=== PATIENT | female | born 1995 | race Asian ===

== ENCOUNTER 2016-12-31 13:39 | Emergency (ER) | payer OTHER ==
[~2016-12-31] VITALS: Ht 163.8 cm; Wt 51.7 kg
[2016-12-31 13:47] VITALS: TEMP 36.9; Ht 163.8 cm; Wt 51.7 kg
[2016-12-31 15:27] LABS: URINE APPEARANCE CLEAR (CLEAR); URINE BILIRUBIN NEG (NEG); URINE COLOR YELLOW; URINE EPITHELIAL CELL AUTO >30 /lpf (0-5); URINE NITRITE NEG (NEG); URINE SPECIFIC GRAVITY 1.007 (1.000-1.030); UROBILINOGEN NEG (NEG)
[2016-12-31 15:29] LABS: MANUAL MICROSCOPIC REQUIRED? NO; REVIEW REQ? NO
[2016-12-31 15:44] LABS: BASO % 0.3 %; BASO ABS # 0.01 K/uL (0-0.2); COMPLETE YES; EOS % 0.3 %; HEMATOCRIT 30.7 % (37-47); LYMPH % 25.6 %; LYMPH ABS # 0.92 K/uL (1.2-3.4); MEAN CELL VOLUME 87.2 fL (80-100); MEAN CORPUSCULAR HEMOGLOBIN 28.4 pg (25-34); MEAN CORPUSCULAR HGB CONC 32.6 g/dl (32-36); MEAN PLATELET VOLUME 9.6 fL (7.4-10.4); MONO % 6.4 %; NEUT % 67.4 %; PLATELET COUNT 229 K/uL (130-400); RED BLOOD COUNT 3.52 M/uL (4.2-5.4)
[2016-12-31 16:08] LABS: ALT/SGPT 22 U/L (12-78); BLOOD UREA NITROGEN 14 mg/dl (7-18); BUN/CREATININE RATIO 24.5 (10-20); CALCIUM 8.7 mg/dl (8.5-10.1); CARBON DIOXIDE 28 mmol/L (21-32); CHLORIDE 106 mmol/L (98-107); CREATININE 0.56 mg/dl (0.60-1.20); GLUCOSE 79 mg/dl (70-99); POTASSIUM 3.4 mmol/L (3.5-5.1); SODIUM 140 mmol/L (136-145)
[2016-12-31 16:18] LABS: ALB/GLOB RATIO 1.2 (0.9-2); ALKALINE PHOSPHATASE 41 U/L (45-117); AST/SGOT 14 U/L (15-37)
--- NOTE | 2016-12-31 16:20 | DIAGNOSTIC IMAGING REPORT ---
PELVIC ULTRASOUND CLINICAL HISTORY: Irregular menses. COMPARISON STUDY: None. TECHNIQUE: Transabdominal and transvaginal sonography of the pelvis was performed. FINDINGS: The uterus measures 7.3 x 3.3 x 4.1 cm. Endometrium measures 4 mm in thickness. No uterine abnormalities are identified by sonography. The right ovary measures 2.2 x 1.4 x 2.7 cm and the left measures 2.9 x 1.6 x 2.3 cm. Color flow is identified within each ovary. A small amount of free pelvic fluid is likely physiologic. IMPRESSION: 1. Unremarkable sonographic appearance of the uterus and ovaries. 2. Small amount of fluid within the pelvis which is likely physiologic. Electronically signed by: Moises Weir M.D. 12/31/2016 4:19 PM Dictated Date/Time: 12/31/2016 4:18 PM
[2016-12-31 16:42] LABS: INR 0.9 (0.9-1.1); PARTIAL THROMBOPLASTIN RATIO 1.1; PROTHROMBIN TIME (PATIENT) 10.1 SECONDS (9.0-12.0)
[2016-12-31 17:30] VITALS: BP 92/60; PULSE 59; O2SAT 100
--- NOTE | 2016-12-31 17:31 | EMERGENCY ROOM VISIT NOTE ---
ED Visit Note First contact with patient: 15:02 CHIEF COMPLAINT: Irregular menstrual cycle this month HISTORY OF PRESENT ILLNESS: Patient is a 21-year-old female who presents to the emergency department for evaluation of an irregular menstrual cycle this month. Patient reports that she had a normal period for her in November. She then got her period on 12/19, it lasted through 12/24, and was 1 week early. Patient reports that the bleeding was light. Stopped completely, then she started bleeding again on 12/28, 3 days ago. She states that over the last 1-2 days, the bleeding was heavy for her, she reports changing her pad every 3 hours. Today the bleeding has tapered off. She notes feeling little bit fatigued, but denies any pelvic pain. No significant cramping. She is sexually active, she uses condoms for contraception, but admits not every time. She is not on an oral contraceptive. She did not take a test. She has no known gynecologic history, and has never seen a manager learning for an exam. REVIEW OF SYSTEMS: Review of systems as per HPI. All other systems reviewed were negative. 10 systems reviewed. PMH: Electronic medical records are reviewed and summarized as above/below. See Problem List. SOCIAL HISTORY: Patient is a college student from [place] who lives at his house with a roommate. She does not smoke. PHYSICAL EXAM: Vital Signs: Reviewed Nurse's notes. CONSTITUTIONAL: Patient is a petite, well-appearing 21-year-old female who is awake and alert and in no acute distress. EYES: Pupils equal, round, reactive to light and accommodation. EOMs intact without nystagmus. Sclera are anicteric. Conjunctiva are pink. ENT: Tympanic membranes intact, with normal landmarks. External canals are clear. Oral and nasopharynx are clear. Mucous membranes are moist, no lesions , tongue and gums appear normal. NECK: No bruits auscultated. Supple without lymphadenopathy. No thyromegaly. No meningeal signs. Full active range of motion without discomfort. CARDIOVASCULAR: Regular rate and rhythm, with normal S1 and S2, no murmur or gallop or rub is heard. No carotid bruits auscultated. No JVD. Peripheral pulses easily palpable. RESPIRATORY: Breath sounds equal and clear to auscultation without wheezes, rales, or rhonchi heard. Full and equal chest expansion without accessory muscle use or retractions. ABDOMEN: Bowel sounds are present. Abdomen is soft, nontender, nondistended. There is no discomfort in the lower pelvic region. No guarding or rebound tenderness noted. INTEGUMENTARY: No lesions or rash, normal skin turgor. LYMPH: No lymphadenopathy. EMERGENCY DEPARTMENT COURSE: The patient was seen and examined as above. IV lock was initiated. CBC with differential, coags, CMP, TSH, urinalysis and quantitative hCG were collected. Pelvic ultrasound was performed. Laboratory studies noted a mild anemia, H&H 10 and 30.7. Coags are normal. Electrolytes are within normal limits. Renal function is not elevated. TSH is indicative of a euthyroid state. Quantitative hCG is less than 1. Urinalysis is indicative of contamination due to menses with 3+ occult blood and 10-30 rbc' s and greater than 30 epithelial cells. There are no other indicators for infection. Pelvic ultrasound was unremarkable. Laboratory and diagnostic imaging studies were reviewed with attending physician , and discussed with the patient at length. She is slightly anemic, unclear as to whether this is chronic for her as she has no old records for comparison. She is otherwise well and hemodynamically stable. She is hypotensive, but this appears to be her baseline. She is not tachycardic. She has a benign abdominal exam. Differential diagnoses entertained included irregular menses, ovarian cyst, , ectopic , missed , coagulopathy, among others. The patient was referred back to [facility] for further gynecologic care and evaluation. Medication reconciliation: I attest that I have personally reviewed the patient' s current medication list. Blood pressure screening : Patient was found to have low blood pressure on screening and does not require follow-up. PELVIC ULTRASOUND CLINICAL HISTORY: Irregular menses. COMPARISON STUDY: None. TECHNIQUE: Transabdominal and transvaginal sonography of the pelvis was performed. FINDINGS: The uterus measures 7.3 x 3.3 x 4.1 cm. Endometrium measures 4 mm in thickness. No uterine abnormalities are identified by sonography. The right ovary measures 2.2 x 1.4 x 2.7 cm and the left measures 2.9 x 1.6 x 2.3 cm. Color flow is identified within each ovary. A small amount of free pelvic fluid is likely physiologic. IMPRESSION: 1. Unremarkable sonographic appearance of the uterus and ovaries. 2. Small amount of fluid within the pelvis which is likely physiologic. Problem List Medical Problems: (1) Left ankle sprain Status: Resolved Current/Historical Medications No Active Prescriptions or Reported Meds Allergies Coded Allergies: No Known Allergies (Unverified , 12/31/16) Vital Signs Date Time Temp Pulse Resp B/P (MAP) Pulse Ox O2 Delivery O2 Flow Rate FiO2 12/31/16 17:30 59 20 92/60 100 12/31/16 15:33 56 20 84/55 100 Room Air 12/31/16 13:47 36.9 64 16 92/64 99 Room Air Laboratory Results 12/31/16 15:25 Red Blood Count 3.52, Mean Corpuscular Volume 87.2, Mean Corpuscular Hemoglobin 28.4, Mean Corpuscular Hemoglobin Concent 32.6, Mean Platelet Volume 9.6, Neutrophils (%) (Auto) 67.4, Lymphocytes (%) (Auto) 25.6, Monocytes (%) (Auto) 6.4, Eosinophils (%) (Auto) 0.3, Basophils (%) (Auto) 0.3, Neutrophils # (Auto) 2.43, Lymphocytes # (Auto) 0.92, Monocytes # (Auto) 0.23, Eosinophils # (Auto) 0.01, Basophils # (Auto) 0.01 12/31/16 15:25 Test 12/31/16 15:00 12/31/16 15:25 12/31/16 16:22 Urine Color YELLOW Urine Appearance CLEAR (CLEAR) Urine pH 6.0 (4.5-7.5) Urine Specific [place] 1.007 (1.000-1.030) Urine Protein NEG (NEG) Urine Glucose (UA) NEG (NEG) Urine Ketones NEG (NEG) Urine Occult Blood 3+ (NEG) Urine Nitrite NEG (NEG) Urine Bilirubin NEG (NEG) Urine Urobilinogen NEG (NEG) Urine Leukocyte Esterase TRACE (NEG) Urine WBC (Auto) 1-5 /hpf (0-5) Urine RBC (Auto) 10-30 /hpf (0-4) Urine Hyaline Casts (Auto) 1-5 /lpf (0-5) Urine Epithelial Cells (Auto) >30 /lpf (0-5) Urine Bacteria (Auto) NEG (NEG) White Blood Count 3.60 K/uL (4.8-10.8) Red Blood Count 3.52 M/uL (4.2-5.4) Hemoglobin 10.0 g/dL (12.0-16.0) Hematocrit 30.7 % (37-47) Mean Corpuscular Volume 87.2 fL (80-100) Mean Corpuscular Hemoglobin 28.4 pg (25-34) Mean Corpuscular Hemoglobin Concent 32.6 g/dl (32-36) Platelet Count 229 K/uL (130-400) Mean Platelet Volume 9.6 fL (7.4-10.4) Neutrophils (%) (Auto) 67.4 % Lymphocytes (%) (Auto) 25.6 % Monocytes (%) (Auto) 6.4 % Eosinophils (%) (Auto) 0.3 % Basophils (%) (Auto) 0.3 % Neutrophils # (Auto) 2.43 K/uL (1.4-6.5) Lymphocytes # (Auto) 0.92 K/uL (1.2-3.4) Monocytes # (Auto) 0.23 K/uL (0.11-0.59) Eosinophils # (Auto) 0.01 K/uL (0-0.5) Basophils # (Auto) 0.01 K/uL (0-0.2) RDW Standard Deviation 54.5 fL (36.4-46.3) RDW Coefficient of Variation 17.0 % (11.5-14.5) Immature Granulocyte % (Auto) 0.0 % Immature Granulocyte # (Auto) 0.00 K/uL (0.00-0.02) Anion Gap 6.0 mmol/L (3-11) Est Creatinine Clear Calc Drug Dose 128.6 ml/min Estimated GFR () > 150.0 Estimated GFR (Non- 132.4 BUN/Creatinine Ratio 24.5 (10-20) Calcium Level 8.7 mg/dl (8.5-10.1) Total Bilirubin 0.8 mg/dl (0.2-1) Aspartate Amino Transf (AST/SGOT) 14 U/L (15-37) Alanine Aminotransferase (ALT/SGPT) 22 U/L (12-78) Alkaline Phosphatase 41 U/L (45-117) Total Protein 7.3 gm/dl (6.4-8.2) Albumin 3.9 gm/dl (3.4-5.0) Globulin 3.4 gm/dl (2.5-4.0) Albumin/Globulin Ratio 1.2 (0.9-2) Thyroid Stimulating Hormone (TSH) 2.000 uIu/ml (0.300-4.500) Human Chorionic Gonadotropin, Quant < 1 mIU/mL Prothrombin Time 10.1 SECONDS (9.0-12.0) Prothromb Time International Ratio 0.9 (0.9-1.1) Activated Partial Thromboplast Time 29.2 SECONDS (21.0-31.0) Partial Thromboplastin Ratio 1.1 Departure Information Impression Primary Impression: Irregular menstrual bleeding Prescriptions No Active Prescriptions or Reported Meds Referrals No Doctor, Assigned (PCP) Patient Instructions My [facility] Additional Instructions Ibuprofen(Motrin, Advil) may be used for fever or pain. Use 600mg every six hours as needed. Take with food. Avoid using more than 2400mg in a 24 hour period. Do not use 2400mg per day for more than three consecutive days without physician direction. Prolonged inappropriate use can lead to stomach upset or ulcers. (AND/OR) Acetaminophen(Tylenol) may be used for fever or pain. Use 1000mg every six hours as needed. Avoid using more than 3000mg in a 24 hour period. Activity as tolerated. Drink plenty of fluids. Diet as tolerated. Follow up with [facility] for recheck from her ED visit. Return to the ED for worsening pain, heavier bleeding (saturating a pad in less than one hour, passing clots larger than your fist), lightheadedness, dizziness , passing out, worsening of your condition or as needed.
== END 2016-12-31 17:30 | disposition home or self-care (01) ==
LOC: C.EDB 13:42 → C.EDA 17:30
DX: N92.6 Irregular menstruation, unspecified (principal)